=== PATIENT | male | born 1960 | race Caucasian/White ===

== ENCOUNTER 2017-10-14 07:39 | Emergency (ER) | payer OTHER, SELFPAY ==
[2017-10-14 07:39] VITALS: BP 143/89; PULSE 70; RESP 18; TEMP 37.2; O2SAT 97; BMI 29.1
--- NOTE | 2017-10-14 07:51 | CT_ITS ---
STUDY: CT ABDOMEN AND PELVIS WITHOUT CONTRAST REASON FOR EXAM: Male, 56 years old. RIGHT FLANK PAIN, HEMATURIA, HX [place]. RADIATION DOSAGE (If Supplied By Facility): CTDIvol = ( 12.85 ) mGy, DLP = ( 693.71 ) mGycm TECHNIQUE: Transaxial images were obtained from the dome of the diaphragm to the symphysis pubis without oral contrast, and without intravenous contrast. Sagittal and coronal images were reconstructed. Individualized dose optimization techniques were used for this CT. COMPARISON: None. FINDINGS: The visualized lung bases are unremarkable. The visualized portions of the heart are within normal limits. Normal liver. Normal gallbladder and extrahepatic biliary system. Normal spleen. Normal pancreas. Normal bilateral adrenal glands. There is mild hydroureteronephrosis on the right. There is a 5 mm calculus at the proximal ureter (axial image #116 series 2). Additionally there are multiple small up to 2 mm calculi of the bilateral kidneys. Normal visualized stomach. Normal small intestine. There are multiple colonic diverticula consistent with diverticulosis. The appendix is visualized and appears normal. There is diffuse atherosclerotic calcification of the abdominal aorta, without a demonstrated aneurysm. Normal inferior vena cava. Normal retroperitoneum. Normal urinary bladder. Normal abdominal wall. There are diffuse degenerative changes of the visualized lumbar spine. CT/Abdomen/Pelvis without Cont IMPRESSION: 5 mm proximal ureteral calculus with mild hydroureteronephrosis on the left. Small bilateral renal calculi. Diverticulosis Electronically Signed: Natasha Fry MD at 9:04 EDT Tel , Service support ,
--- NOTE | 2017-10-14 07:52 | ED.VISSUMM ---
- ER Visit Summary Date of Service: 10/14/17 Chief Complaint: Acute right flank pain that awoke patient from sleep History of Present Illness: The patient is a 56 M with history of prior renal calculi. He has never had a CAT scan. Last imaging was years ago and he had an intravenous pyelogram performed. He reports hematuria last week. He has had no hematuria this week. He presently denies nausea or vomiting. He denies fever or chills. He denies cough, shortness of breath or difficulty breathing. He denies chest pain, palpitations or orthopnea. He does report pain radiating anteriorly and earlier this morning radiating into his right testicle. He denies dysuria, frequency, urgency or hematuria. He reports difficulty urinating and decreased urine output. There is no history of trauma. He is on no medication and has no allergies. He lives with his spouse. He does drink but does not smoke. Physical Examination: Patient appears uncomfortable. He declined pain medicine. HEENT is unremarkable. Heart is regular without murmur, gallop or rub. S1 and S2 are normal. Lungs are clear to auscultation with good movement of air bilaterally. Abdomen is soft nontender with increased bowel sounds. There is no temporal percussion. There is no CVA tenderness noted. There is no inguinal lymphadenopathy or hernia. There is no dermatologic lesions noted. Test Results: BMP is unremarkable. UA is remarkable for microscopic hematuria. CT of the abdomen pelvis without contrast reveals multiple bilateral renal calculi. There is a 5 mm mid to proximal right ureteral calculus with hydronephrosis. Emergency Department Course and Treatment: Patient declined pain medicine. He states the pain is not as bad. Since he is middle-age will obtain a BMP, UA and CT abdomen pelvis without contrast to evaluate for obstructing renal stone. Treatment Plan: Referral to urology and opiate analgesia for pain control Disposition: Discharged to home with spouse Impression: 1. 5 mm proximal/mid right ureteral calculus with mild hydronephrosis 2. Multiple small bilateral renal calculi This note was generated with [employer] dictation software. It may contain incorrect words, spelling, and punctuation that were not noted in review of the chart prior to signing ED Disposition - Plan for ED Patient: Disposition: Home or Assisted Living Chief Complaint: Flank Pain Instructions: ED Stone Renal W Colic Prescriptions: Oxycodone HCl/Acetaminophen [Percocet 5/325] 1 tab PO Q6H PRN PRN 5 Days #20 tab PRN Reason: flank pain Referrals: Raheel Jones III, MD [Primary Care Provider] - Sandra Cruz MD [STAFF PHYSICIAN] - 5-7 Days
[2017-10-14 08:26] LABS: Anion Gap 5 (5-15); BUN 12 mg/dL (7-18); BUN/Creat Ratio 12.1 RATIO (10-20); Calcium,Total 8.3 mg/dL (8.5-10.1); Chloride 110 mmol/L (98-107); Creatinine, Serum 0.99 mg/dL (0.70-1.30); EST Glomerular Filtration Rate 83 mL/min (>60); Est Glom Filt Rate - Afr Amer 101 mL/min (>60); Estimated Creatinine Clearance 87.05 ml/min; Glucose 104 mg/dL (74-106); Potassium 3.8 mmol/L (3.5-5.1); Sodium Level 142 mmol/L (136-145)
[2017-10-14 08:28] LABS: Bacteria 0 SEEN /hpf (None Seen); Mucous, Urine 0 SEEN /hpf (<or=2+); Squamous Epithelial Cells - UA 0 SEEN /hpf (0-5); White Blood Cells 0 SEEN /hpf (0-5)
[2017-10-14 08:30] LABS: Color, Urine Yellow (Yellow); Glucose, Dipstick Normal (Normal); Ketone-Dipstick Negative (Negative); Leukocyte Esterase-Dipstick Negative /ul (Negative); Nitrite-Dipstick Negative (Negative); Occult Blood-Urine 250 /ul (Negative); Protein-Dipstick Negative (Negative); Specific Gravity, Urine 1.015 (1.002-1.030); Urine Bilirubin Dipstick Negative (Negative); Urine Clarity Sl. Cloudy (Clear); Urine Urobilinogen Normal (Normal); Urine pH 6.5 (5.0 - 8.0)
[2017-10-14 08:36] LABS: Red Blood Cells-Urine 25-50 SEEN /hpf (0-5)
[2017-10-14 10:00] VITALS: BP 131/77; PULSE 59; RESP 15; O2SAT 99
== END 2017-10-14 10:01 | disposition home or self-care (01) ==
PROVIDERS: Emergency Provider Emergency Medicine; Family Provider Family Medicine; PCP Family Medicine
DX: N13.2 Hydronephrosis with renal and ureteral calculous obstruction (principal); R31.29 Other microscopic hematuria; E66.9 Obesity, unspecified; Z87.442 Personal history of urinary calculi
CPT/HCPCS: 74176; 80048; 81001; 99285; A4216

== ENCOUNTER 2017-12-09 15:14 | Emergency (ER) | payer OTHER, SELFPAY ==
[2017-12-09 15:15] VITALS: BP 160/99; PULSE 66; RESP 18; TEMP 36.4; O2SAT 98; BMI 28.7
--- NOTE | 2017-12-09 15:32 | CT_ITS ---
STUDY: CT ABDOMEN AND PELVIS WITHOUT CONTRAST REASON FOR EXAM: Male, 57 years old. Right flank pain RADIATION DOSAGE (If Supplied By Facility): CTDIvol = ( 13.71 ) mGy, DLP = ( 774.31 ) mGycm TECHNIQUE: Transaxial images were obtained from the dome of the diaphragm to the symphysis pubis without oral contrast, and without intravenous contrast. Sagittal and coronal images were reconstructed. Individualized dose optimization techniques were used for this CT. COMPARISON: 10/14/2017 FINDINGS: Evaluation of the abdominal viscera is limited in the absence of intravenous contrast. The visualized lung bases are clear. The visualized portions of the heart and pericardium are within normal limits. There are no calcified gallstones present. The liver demonstrates an unremarkable unenhanced appearance. The spleen is normal in size. The pancreas demonstrates an unremarkable unenhanced appearance. The adrenal glands are within normal limits. There is a 5 mm stone in the right distal ureter with mild right hydroureteronephrosis. There are additional subcentimeter bilateral nonobstructing collecting system stones. There is no left ureteral stone. There is no left hydronephrosis. Normal visualized stomach. There is no bowel obstruction or inflammation. The appendix is visualized and appears normal. The aorta is normal in caliber. There is no abdominal or pelvic free air, free fluid, fluid collection or lymphadenopathy. There are no destructive osseous lesions. CT/Abdomen/Pelvis without Cont IMPRESSION: 5 mm stone in the right distal ureter with mild right hydroureteronephrosis. Bilateral subcentimeter nonobstructing renal collecting system stones. No left ureteral stones. No left hydronephrosis. Electronically Signed: Greyson Urbina, at 16:12 EDT Tel , Service support ,
--- NOTE | 2017-12-09 15:38 | ED.VISSUMM ---
- ER Visit Summary Date of Service: 12/09/17 Chief Complaint: Flank pain History of Present Illness: The patient is a 57 M with right sided flank pain. He has had this for months. This episode started this morning. He was recently diagnosed with kidney stones. He took his oxycodone at home which did not help. He also reports hematuria. No fevers, chills, or sweats. No other symptoms. Physical Examination: Afebrile and vital signs unremarkable. Patient is pacing and appears uncomfortable. Heart regular. Lungs clear. Abdomen soft. Right CVA tenderness palpation. Skin appears normal. Test Results: Labs, urine, CT pending. Emergency Department Course and Treatment: Patient treated with fluids, Toradol, Zofran while awaiting results. CT showed a 5 mm stone in the right distal ureter with mild hydroureteronephrosis. CBC normal. BMP unremarkable. Urinalysis shows elevated leuks, blood, and nitrites. Culture is pending. Treatment Plan: Patient treated with Toradol and Zofran here. He also received IV fluids. He was feeling better on reevaluation. Requesting discharge. Will treat with a course of Flomax, Percocet, Zofran, and Keflex. He was referred to urology for outpatient follow-up. Disposition: Discharged Impression: 1. Ureteral colic 2. UTI This note was generated with [employer] dictation software. It may contain incorrect words, spelling, and punctuation that were not noted in review of the chart prior to signing ED Disposition - Plan for ED Patient: Chief Complaint: Flank Pain Referrals: Raheel Jones III, MD [Primary Care Provider] -
[2017-12-09] MEDS: 0.9% Normal Saline 1,000 ML 1000 ML IV (15:53)
[2017-12-09] MEDS: Ketorolac 30 MG/ML Syringe IV (15:54)
[2017-12-09] MEDS: Ondansetron 4 MG/2 ML Vial IV (15:54)
[2017-12-09 16:03] LABS: Squamous Epithelial Cells - UA 0 SEEN /hpf (0-5)
[2017-12-09 16:06] LABS: Color, Urine Yellow (Yellow); Glucose, Dipstick Normal (Normal); Ketone-Dipstick 5 mg/dl (Negative); Leukocyte Esterase-Dipstick 25 /ul (Negative); Nitrite-Dipstick Positive (Negative); Occult Blood-Urine 250 /ul (Negative); Protein-Dipstick 100 mg/dl (Negative); Specific Gravity, Urine 1.025 (1.002-1.030); Urine Bilirubin Dipstick Negative (Negative); Urine Clarity Cloudy (Clear); Urine Urobilinogen 1 mg/dl (Normal)
[2017-12-09 16:12] LABS: Absolute Neutrophil Count 8.5 X10^3/uL (2.0-7.7); Basophil# 0.01 X10^3/uL; Basophil% 0.1 % (0-1); Eosinophil# 0.06 X10^3/uL; Eosinophils% 0.6 % (0-5); Hemoglobin 15.3 g/dl (13.0-16.5); Mean Corp Hgb Conc 32.6 g/gl (32-36); Mean Corpuscular Hgb 29.9 pg (27.0-32.0); Mean Platelet Vol. 10.6 fl (6.2-12.0); Monocyte# 0.61 X10^3/uL; Monocyte% 6.1 % (0-10); Neutrophil # 8.45 X10^3/uL (2.7-7.7); Neutrophil % 85.1 % (47-70); Platelet Count 193 K/mm3 (150-450); RBC Distribution Width CV 12.6 % (11.6-14.6); RBC Distribution Width SD 42.4 fl (35.1-43.9); Red Blood Count 5.11 M/mm3 (4.6-6.2); White Blood Count 9.9 K/mm3 (4.4-11.0)
[2017-12-09 16:14] LABS: POSITIVE COUNT NO; POSITIVE DIFFERENTIAL NO; POSITIVE MORPHOLOGY NO
[2017-12-09 16:19] LABS: Anion Gap 7 (5-15); BUN 15 mg/dL (7-18); BUN/Creat Ratio 12.2 RATIO (10-20); Calcium,Total 8.9 mg/dL (8.5-10.1); Chloride 109 mmol/L (98-107); Creatinine, Serum 1.23 mg/dL (0.70-1.30); EST Glomerular Filtration Rate 65 mL/min (>60); Est Glom Filt Rate - Afr Amer 78 mL/min (>60); Estimated Creatinine Clearance 69.24 ml/min; Glucose 143 mg/dL (74-106); Potassium 4.3 mmol/L (3.5-5.1); Sodium Level 142 mmol/L (136-145)
[2017-12-09 17:05] LABS: Red Blood Cells-Urine > 100 SEEN /hpf (0-5); White Blood Cells 0-5 SEEN /hpf (0-5)
[2017-12-09 17:06] LABS: Bacteria 2+ /hpf (None Seen); Calcium Oxalate Crystals Ur 1+ /hpf (<or=2+); Mucous, Urine 2+ /hpf (<or=2+)
--- NOTE | 2017-12-09 17:22 | ED.DEP ---
ED Disposition - Plan for ED Patient: Chief Complaint: Flank Pain Instructions: ED Stone Renal W Colic Prescriptions: Oxycodone HCl/Acetaminophen [Percocet 5/325] 1 tab PO Q6H PRN PRN 3 Days #12 tab PRN Reason: Pain Ondansetron [Zofran Odt] 4 mg PO Q8H PRN PRN #10 tab PRN Reason: Nausea Tamsulosin HCl [Flomax] 0.4 mg PO DAILY #10 cap Cephalexin [Keflex] 500 mg PO 4X/DAY #28 cap Referrals: Sandra Cruz MD [STAFF PHYSICIAN] -
[2017-12-09] MEDS: Morphine 4 MG/ML Syringe IV (17:50)
[2017-12-09 18:06] VITALS: BP 141/88; PULSE 70; RESP 16
== END 2017-12-09 18:08 | disposition home or self-care (01) ==
PROVIDERS: Emergency Provider Emergency Medicine; Family Provider Family Medicine; PCP Family Medicine
DX: N23 Unspecified renal colic (principal); N39.0 Urinary tract infection, site not specified; R31.9 Hematuria, unspecified; Z79.899 Other long term (current) drug therapy
CPT/HCPCS: 74176; 80048; 81001; 85025; 87086; 87088; 96374; 96375; 99283; J7030; J2405

== ENCOUNTER 2019-04-01 20:50 | Emergency (ER) | payer OTHER, SELFPAY ==
[2019-04-01 20:52] VITALS: BP 171/106; PULSE 121; RESP 17; TEMP 36; O2SAT 96; BMI 33.6
--- NOTE | 2019-04-01 20:56 | ED.RN ---
this rn called for ekg from triage.
[2019-04-01 21:15] VITALS: O2SAT 94
[2019-04-01 21:54] VITALS: BP 135/92; PULSE 97; RESP 19; O2SAT 97
--- NOTE | 2019-04-01 22:13 | EKG12_ITS ---
Test Reason : DYSRHYTHMIA Blood Pressure : / mmHG Vent. Rate : 107 BPM Atrial Rate : 107 BPM P-R Int : 120 ms QRS Dur : 074 ms QT Int : 328 ms P-R-T Axes : 030 008 025 degrees QTc Int : 437 ms Sinus tachycardia Possible Inferior infarct , age undetermined Abnormal ECG Confirmed by RONNY TONEY, IMANI ([id number]), editor producer JAYESH MENDEZ ([id number]) on 04/02/2019 10:39:34 AM Referred By: BB Confirmed By:ENIO JEFFERSON MD
--- NOTE | 2019-04-01 22:17 | ED.DCSUM_ITS ---
History of Present Illness Chief Complaint: Shortness of Breath Informant: Patient Onset: Today Timing: Intermittent, Lasts - 2-3 Quality: - - couldn't catch breath Current Severity: Gone Maximum Severity: Severe Worsened by: Nothing Relieved by: Nothing Associated Symptoms: - - racing HB. Negative for: Cough, Ear pain, Fever Chest Pain: None Narrative: Patient takes medicine for blood pressure. He has been having episodes of dyspnea off and on for 10 years. More frequent in the last year or so, saw his doctor and had a chest x-ray that was unremarkable and advised to come to the ER if it returned, which it did tonight while resting, suddenly. No history of DVT or PE. No recent leg pain or swelling, recent travel, hospitalization, or surgery. No leg injury. Denies having any chest pain with it. No near syncope or syncope. Did not do any drugs. No history of any heart problems that he knows of. No exertional symptoms. Other than feeling tired, he feels pretty much back to normal now. He used to smoke 15 years ago but not now. - Past Medical History (1) Hypertension Status: Chronic Past Medical History - Allergies and Home Meds Allergies/Adverse Reactions: Allergies No Known Allergies Allergy (Verified 04/01/19 20:51) Primary Care Physician: Raheel Jones III, MD [Primary Care Provider] - Lives: Spouse/ Significant Other Smoking Status: Former smoker Review of Systems General: Denies: Chills, Fever, Sweats Eyes: Denies: Visual changes - bilaterally, Diplopia ENT: Denies: Rhinorrhea, Sore throat Cardiovascular: Reports: Palpitations, Heart racing. Denies: Chest pain Respiratory: Reports: Dyspnea. Denies: Cough, Dyspnea on exertion Gastrointestinal: Denies: Abdominal pain, Nausea, Vomiting, Diarrhea, Melena, Hematochezia Genitourinary: Denies: Dysuria, Hematuria, Frequency Musculoskeletal: Denies: Back pain, Extremity Pain Skin: Denies: Rash, Wounds Neurological: Denies: Headache, Weakness, Numbness Physical Exam Vital Signs/Narrative: Vital Signs Temp Pulse Resp BP Pulse Ox 04/01/19 21:54 97 19 H 135/92 H 97 04/01/19 20:52 96.8 F L 121 H 17 171/106 H 96 Inital Vital Signs reviewed: Yes General: Well nourished, Well developed, No Acute Distress Head: Normocephalic, Atraumatic Eyes: Perrl, EOMI ENT: Moist mucous membranes, No rhinorrhea Neck: Supple, Nontender, No lymphadenopathy, No JVD Cardiovascular: Regular rate, Regular rhythm, No murmurs, Normal S1, Normal S2, Tachycardia - Mild around 105 on exam Respiratory: No distress, CTA bilaterally, Chest nontender Abdomen: Soft, Nontender, Nondistended, Normal bowel sounds Back: Nontender, Normal Inspection Extremities: Nontender, No edema. Negative for: Calf Tenderness Skin: Normal color, No rash, No Trauma Neurological: Alert, Oriented x3, Cranial nerves II-XII grossly intact, Normal Strength, Normal Sensation, Normal Gait Psychological: Normal affect, Normal Mood Diagnostic/Tx/Re-eval Impressions Chest X-Ray 04/01/19 22:29 IMPRESSION: No acute cardiopulmonary disease. Electronically Signed: Aneesh Alfaro DO at 22:41 EST Tel [phone], Service support , 04/01/19 22:29 Chest PA and Lateral [RAD] Stat Laboratory Results 04/01/19 04/01/19 04/01/19 21:39 21:39 21:39 WBC 7.6 RBC 5.18 Hgb 15.5 Hct 46.3 MCV 89.4 MCH 29.9 MCHC 33.5 RDW Std Deviation 40.5 RDW Coeff of Matt 12.3 Plt Count 225 MPV 10.7 Immature Gran % (Auto) 0.300 Neut % (Auto) 67.3 Lymph % (Auto) 22.0 Simpson % (Auto) 7.1 Eos % (Auto) 2.8 Baso % (Auto) 0.5 Absolute Neuts (auto) 5.1 Absolute Lymphs (auto) 1.66 Nucleated RBC % 0 D-Dimer Quant (PE/DVT) 0.29 Sodium 140 Potassium 3.7 Chloride 109 H Carbon Dioxide 25.0 Anion Gap 6 BUN 17 Creatinine 0.94 Estim Creat Clear Calc 89.52 Est GFR (MDRD) Af Amer 106 Est GFR (MDRD) Non-Af 88 BUN/Creatinine Ratio 18.1 Glucose 133 H Calcium 8.7 Troponin I < 0.015 - Rhythm Strip Rhythm Strip: Sinus Rhythm Rate: 95 Ectopy: None - EKG Initial EKG Interpretation: No Acute Injury Pattern - Normal other than mild tachycardia and Q waves in lead III only, Sinus Tachycardia With Ambulation: Asymptomatic - Medical Decision Making Patient was monitored had no recurrent symptoms, telemetry events, his labs including d-dimer and his chest x-ray are all normal, and his EKG is normal. He states he is about to be scheduled for an outpatient stress test because of the symptoms, I think he can be safely discharged and continued to get that as an outpatient, does not require admission at this time given the chronicity and recurrent symptoms. After stress test, or even before, I think a Holter/event monitor would be indicated to rule out dysrhythmia, ectopy, or other cardiac etiology of the symptoms. Discussed at length with patient they are comfortable with this plan will follow-up with PCP. ED Disposition - Plan for ED Patient: Disposition: Home or Assisted Living Diagnosis: Acute dyspnea, Palpitations Instructions: Palpitations Referrals: Raheel Jones III, MD [Primary Care Provider] - As soon as possible
--- NOTE | 2019-04-01 22:29 | RAD_ITS ---
STUDY: X-RAY CHEST REASON FOR EXAM: Male, 58 years old. Shortness of breath. TECHNIQUE: PA and lateral views of the chest. COMPARISON: None. FINDINGS: The lungs are clear and expanded. There is no demonstrated pleural abnormality. Normal size heart. Normal mediastinum and susan. Normal visualized pulmonary arteries. Normal visualized aortic arch and descending thoracic aorta. Normal visualized thoracic spine. Normal visualized ribs, clavicles, and shoulders. There is no demonstrated abnormality of the visualized soft tissue structures of the upper abdomen. RAD/Chest PA and Lateral IMPRESSION: No acute cardiopulmonary disease. Electronically Signed: Aneesh Alfaro DO at 22:41 EST Tel [phone], Service support ,
[2019-04-01 22:32] LABS: Absolute Lymphocyte Count 1.66 X10^3/uL (0.83-4.51); Absolute Neutrophil Count 5.1 X10^3/uL (2.0-7.7); Basophil# 0.04 X10^3/uL; Basophil% 0.5 % (0-1); Eosinophil# 0.21 X10^3/uL; Eosinophils% 2.8 % (0-5); Hematocrit 46.3 % (40-54); Hemoglobin 15.5 g/dL (13.0-16.5); Lymphocyte # 1.66 X10^3/ul (4.0); Mean Corp Hgb Conc 33.5 g/dL (32-36); Mean Corpuscular Hgb 29.9 pg (27.0-32.0); Mean Corpuscular Volume 89.4 fL (80-94); Mean Platelet Vol. 10.7 fl (6.2-12.0); Monocyte# 0.54 X10^3/uL; Monocyte% 7.1 % (0-10); NRBC Flagged by Analyzer 0 % (0-5); Neutrophil # 5.09 X10^3/uL (2.7-7.7); Neutrophil % 67.3 % (47-70); Platelet Count 225 K/mm3 (150-450); RBC Distribution Width CV 12.3 % (11.6-14.6); RBC Distribution Width SD 40.5 fl (35.1-43.9); Red Blood Count 5.18 M/mm3 (4.6-6.2); White Blood Count 7.6 K/mm3 (4.4-11.0)
[2019-04-01 22:50] LABS: Anion Gap 6 (5-15); BUN 17 mg/dL (7-18); BUN/Creat Ratio 18.1 RATIO (10-20); Calcium,Total 8.7 mg/dL (8.5-10.1); Chloride 109 mmol/L (98-107); Creatinine, Serum 0.94 mg/dL (0.70-1.30); EST Glomerular Filtration Rate 88 mL/min (>60); Est Glom Filt Rate - Afr Amer 106 mL/min (>60); Estimated Creatinine Clearance 89.52 ml/min; Glucose 133 mg/dL (74-106); Potassium 3.7 mmol/L (3.5-5.1); Sodium Level 140 mmol/L (136-145)
[2019-04-01 22:52] LABS: D-Dimer Quantitative (DVT/PE) 0.29 FEU/ug/m (0.27-0.49)
[2019-04-01 23:14] VITALS: BP 123/89; PULSE 79; RESP 20; O2SAT 93
[2019-04-01 23:45] VITALS: BP 129/95; PULSE 74; RESP 20; O2SAT 96
== END 2019-04-01 23:45 | disposition home or self-care (01) ==
PROVIDERS: Emergency Provider Emergency Medicine; Family Provider Family Medicine; PCP Family Medicine
DX: R06.00 Dyspnea, unspecified (principal); R00.2 Palpitations; I10 Essential (primary) hypertension; Z79.899 Other long term (current) drug therapy; Z87.891 Personal history of nicotine dependence
CPT/HCPCS: 71046; 80048; 84484; 85025; 85379; 93005; 99284; A4216

== ENCOUNTER 2021-04-09 04:06 | Emergency (ER) | payer OTHER, SELFPAY ==
[2021-04-09 04:07] VITALS: BP 147/98; PULSE 78; RESP 16; TEMP 36; O2SAT 98; BMI 30.4
--- NOTE | 2021-04-09 04:36 | CT_ITS ---
STUDY: CT ABDOMEN AND PELVIS WITH CONTRAST REASON FOR EXAM: Male, 60 years old. left sided abd pain RADIATION DOSAGE (If Supplied By Facility): CTDIvol = ( 18.00 ) mGy, DLP = ( 1254.55 ) mGycm TECHNIQUE: Transaxial images were obtained from the dome of the diaphragm to the symphysis pubis without oral contrast. IV 100mL Isovue-[id number] was administered. Sagittal and coronal images were reconstructed. Individualized dose optimization techniques were used for this CT. COMPARISON: Ct abdomen from 12/09/2017. FINDINGS: The visualized lung bases are unremarkable. The visualized portions of the heart are within normal limits. Normal liver. Normal gallbladder and extrahepatic biliary system. Normal spleen. Normal pancreas. Normal bilateral adrenal glands. Normal right kidney. Normal left kidney. There are bilateral subcentimeter nonobstructive renal calculi. No ureteral calculus or hydronephrosis. Normal visualized stomach. Normal small intestine. There are a few scattered colonic diverticula consistent with diverticulosis. The appendix is visualized and appears normal. Normal abdominal aorta. Normal inferior vena cava. Normal retroperitoneum. Normal urinary bladder. Normal abdominal wall. There are degenerative changes of the visualized lumbar spine. CT/Abdomen/Pelvis W IV Cont ONLY IMPRESSION: Negative enhanced CT of the abdomen and pelvis for acute abnormality. No ureteral calculus. Electronically Signed: Arsen Castañeda MD at 6:13 EST Tel , Service support ,
--- NOTE | 2021-04-09 04:37 | EKG12_ITS ---
Test Reason : ABD PAIN Blood Pressure : / mmHG Vent. Rate : 068 BPM Atrial Rate : 068 BPM P-R Int : 108 ms QRS Dur : 074 ms QT Int : 378 ms P-R-T Axes : 042 002 008 degrees QTc Int : 401 ms Sinus rhythm with short NH Otherwise normal ECG Confirmed by ANGLE TONEY, DERIAN ([id number]), visual effects editor NAEEM MAYERS ([id number]) on 04/12/2021 9:50:44 AM Referred By: JIGAR Confirmed By:DERIAN BARBOUR MD
--- NOTE | 2021-04-09 04:37 | ED.VIS.GI ---
HPI HPI - GI History of Present Illness Chief Complaint: Abd Pain Informant: patient Narrative Narrative: Patient is a 60-year-old male with history of hypertension and kidney stones presenting with left-sided discomfort and constipation. Patient states he is normally very regular and has at least 2 bowel movements a day. He states his last bowel movement was yesterday morning and was small. He notes that he has developed pain in his left abdomen/flank that he describes as mild. He has a hard time characterizing it. It does not radiate. He notes he just been feeling poorly for the past 2 days. 1 week ago he was having testicular pain and that he was may be passing a small kidney stone. He has been trying an enema as well as MiraLAX with no relief of his constipation or discomfort. Denies any fever or chills. Denies any nausea or vomiting. Denies any chest pain or other symptoms. Notes that about 3 weeks ago he had flulike/cold-like symptoms and figured he likely had COVID however he was not tested. Denies any urinary symptoms at this time. No other complaints. [facility] Medical History Arthritis Hay fever Home Medications bisoprolol-hydrochlorothiazide 1 tab PO DAILY 04/09/21 [History Last Taken Unknown] Allergy/AdvReac Type Severity Reaction Status Date / Time No Known Allergies Allergy Verified 04/01/19 20:51 Social History Smoking Status: Former smoker alcohol intake: current alcohol intake frequency: 0-2 drinks per day Alcohol type: beer ROS ROS ED Constitutional Constitutional ED: Denies fever(s) or subjective ENT ENT ED: Denies rhinorrhea or sore throat Cardiovascular Cardiovascular: Denies chest pain or palpitations Respiratory/Chest Respiratory/Chest: Denies dyspnea Gastrointestinal Gastrointestinal: Reports abdominal pain and constipation; Denies diarrhea, nausea or vomiting Genitourinary Genitourinary ED: Denies dysuria, hematuria or urinary frequency Musculoskeletal Musculoskeletal: Reports back pain; Denies arthralgias or myalgias Integumentary Denies rash Neurologic Neurologic: Denies headache(s) or weakness Psychiatric Psychiatric: Denies depression EXAM Physical Exam Const Vital Signs: 04/09/21 04:07 Temperature 96.8 F L Temperature Source Oral Pulse Rate 78 Respiratory Rate 16 Blood Pressure 147/98 H Blood Pressure Mean 114 Pulse Ox 98 Oxygen Delivery Method Room Air Positive well nourished and well developed General Appearance ED: well developed HEENT Reports moist mucous membranes normocephalic Eyes PERRL and EOMs intact bilaterally Neck supple Resp normal respiratory effort and clear to auscultation bilaterally Cardio regular rate, regular rhythm and no murmurs GI non-tender and non-distended Auscultation: hyperactive bowel sounds Palpation: soft; Negative for guarding or rigid Back/Spine no CVA tenderness Back/Spine Narrative: No midline tenderness. Mild left lumbar paraspinal tenderness around L2/L3 Extremity full ROM General Extremety ED: Negative for edema General Extremity: Negative for edema Neuro moves all extremities Sensorium / Orientation: alert, oriented to person, oriented to place and oriented to time Psych mental status grossly normal and thought process normal Skin Lesions: no lesions Rashes: no rashes MDM MDM MDM Narrative Medical decision making narrative: Patient evaluated for sensation constipation, left flank/low back pain and generalized malaise. Patient appears nontoxic in no acute distress. Vital signs are significant for very mild hypertension but they are stable. He is not having associated chest pain or shortness of breath. He does have a history of hypertension so cardiac work-up is ordered as well including high-sensitivity troponin and EKG. [place] normal. There is no obvious acute intra-abdominal cause of his discomfort. CT was obtained to rule out diverticulitis and small bowel obstruction which showed diverticulosis and nephrolithiasis with no signs of hydronephrosis or ureterolithiasis. Patient is given a liter of IV fluid in the ER. Discussed with patient that I am not sure what is causing his discomfort however I do think he safe for outpatient follow-up. He is given referral back to his surgeon who normally does his colonoscopies as well as GI forest and conservation worker. Patient is counseled return precautions. He is encouraged to drink plenty of fluids and continue taking daily MiraLAX to see if this helps with the symptoms. Lab Data Attestation: I reviewed the patient's lab results. Labs: Laboratory Results - last 24 hr 04/09/21 04/09/21 04/09/21 04:54 04:54 05:30 WBC 5.8 RBC 4.99 Hgb 15.0 Hct 45.5 MCV 91.2 MCH 30.1 MCHC 33.0 RDW Std Deviation 41.0 RDW Coeff of Matt 12.4 Plt Count 224 MPV 10.6 Immature Gran % (Auto) 0.300 Neut % (Auto) 63.7 Lymph % (Auto) 25.5 Garvin % (Auto) 7.6 Eos % (Auto) 2.2 Baso % (Auto) 0.7 Absolute Neuts (auto) 3.7 Absolute Lymphs (auto) 1.48 Nucleated RBC % 0 Sodium 141 Potassium 4.0 Chloride 108 H Carbon Dioxide 27.0 Anion Gap 6 BUN 13 Creatinine 0.99 Estim Creat Clear Calc 82.95 Est GFR (MDRD) Af Amer 100 Est GFR (MDRD) Non-Af 82 BUN/Creatinine Ratio 13.2 Glucose 125 H Calcium 8.4 L Total Bilirubin 0.90 AST 19 ALT 33 Alkaline Phosphatase 84 Troponin I High Sens 6 Total Protein 6.8 Albumin 3.7 Globulin 3.1 Albumin/Globulin Ratio 1.2 Urine Color Yellow Urine Clarity Clear Urine pH 6.5 Ur Specific [place] 1.010 Urine Protein Negative Urine Glucose (UA) Normal Urine Ketones Negative Urine Occult Blood Negative Urine Nitrite Negative Urine Bilirubin Negative Urine Urobilinogen Normal Ur Leukocyte Esterase Negative Urine RBC 0 SEEN Urine WBC 0 SEEN Ur Squamous Epith Cells 0 SEEN Urine Bacteria 0 SEEN Urine Mucus 0 SEEN Radiography Diagnostic Testing: Clinical Impression(s) from Imaging Studies Abdomen/Pelvis CT 04/09/21 04:36 IMPRESSION: Negative enhanced CT of the abdomen and pelvis for acute abnormality. No ureteral calculus. Electronically Signed: Arsen Castañeda MD at 6:13 EST Tel , Service support , Rhythm Strip Rhythm Strip: Sinus Rhythm Rate: 68 Ectopy: None EKG Initial EKG: Attestation: I personally reviewed and interpreted this EKG as follows: Interpretation: Sinus Rhythm Comments: Sinus rhythm at a rate of 68 with shortened ND interval ND interval 108 Normal axis QRS [address] segments Discharge Plan Triage Chief Complaint: Abd Pain ED Provider: Susu Cm Dx/Rx/DC Orders Clinical Impression: Acute left flank pain, Malaise Instructions: ED Flank Pain, Uncertain Cause Prescriptions: No Action bisoprolol-hydrochlorothiazide 5-6.25 mg tablet 1 tab PO DAILY RF: 0 Primary Care Provider: Care Physician,No Primary Referrals: Friend,DO Jass [STAFF PHYSICIAN] - Michael Mancia MD [STAFF PHYSICIAN] - Care Physician,No Primary [Primary Care Provider] - Activity Restrictions/Additional Instructions: The exact cause of your symptoms is not clear. At this time I think you are stable for outpatient follow-up. There is no sign of a passing kidney stone at this time. You do have stones in your Kidneys that do not appear to be moving. You can continue to take daily MiraLAX to help regulate your bowel movements. Make sure you are drinking plenty of fluids. Disposition Disposition: Home, Self Care Discharge Date/Time: 04/09/21 06:44
[2021-04-09] MEDS: 0.9% Normal Saline 1,000 ML 1000 ML IV (04:57)
[2021-04-09 05:00] LABS: Absolute Lymphocyte Count 1.48 X10^3/uL (0.83-4.51); Absolute Neutrophil Count 3.7 X10^3/uL (2.0-7.7); Basophil# 0.04 X10^3/uL; Basophil% 0.7 % (0-1); Eosinophil# 0.13 X10^3/uL; Eosinophils% 2.2 % (0-5); Hematocrit 45.5 % (40-54); Lymphocyte # 1.48 X10^3/ul (0.83-4.51); Lymphocyte % 25.5 % (19-41); Mean Corpuscular Hgb 30.1 pg (27.0-32.0); Mean Corpuscular Volume 91.2 fL (80-94); Mean Platelet Vol. 10.6 fl (6.2-12.0); Monocyte# 0.44 X10^3/uL; Monocyte% 7.6 % (0-10); NRBC Flagged by Analyzer 0 % (0-5); Neutrophil % 63.7 % (47-70); Platelet Count 224 K/mm3 (150-450); RBC Distribution Width CV 12.4 % (11.6-14.6); Red Blood Count 4.99 M/mm3 (4.6-6.2); White Blood Count 5.8 K/mm3 (4.4-11.0)
[2021-04-09 05:36] LABS: Bacteria 0 SEEN /hpf (None Seen); Mucous, Urine 0 SEEN /hpf (<or=2+); Red Blood Cells-Urine 0 SEEN /hpf (0-5); Squamous Epithelial Cells - UA 0 SEEN /hpf (0-5); White Blood Cells 0 SEEN /hpf (0-5)
[2021-04-09 05:37] LABS: Color, Urine Yellow (Yellow); Glucose, Dipstick Normal (Normal); Ketone-Dipstick Negative (Negative); Leukocyte Esterase-Dipstick Negative /ul (Negative); Nitrite-Dipstick Negative (Negative); Occult Blood-Urine Negative /ul (Negative); Protein-Dipstick Negative (Negative); Urine Bilirubin Dipstick Negative (Negative); Urine Clarity Clear (Clear); Urine Urobilinogen Normal (Normal); Urine pH 6.5 (5.0 - 8.0)
[2021-04-09 05:39] LABS: ALB/GLOB Ratio 1.2 RATIO (0.9-2.4); AST(SGOT) 19 U/L (15-37); Alanine Aminotransfer ALT/SGPT 33 U/L (16-61); Albumin, Serum 3.7 g/dL (3.2-5.0); Alkaline Phosphatase 84 U/L (45-117); Anion Gap 6 (5-15); BUN 13 mg/dL (7-18); BUN/Creat Ratio 13.2 RATIO (10-20); Calcium,Total 8.4 mg/dL (8.5-10.1); Chloride 108 mmol/L (98-107); Creatinine, Serum 0.99 mg/dL (0.70-1.30); EST Glomerular Filtration Rate 82 mL/min (>60); Est Glom Filt Rate - Afr Amer 100 mL/min (>60); Estimated Creatinine Clearance 82.95 ml/min; Globulin 3.1 g/dL (2.2-4.2); Glucose 125 mg/dL (74-106); Protein, Total 6.8 g/dL (6.4-8.2); Sodium Level 141 mmol/L (136-145); Troponin-I HS 6 pg/mL (3.0-78.0)
[2021-04-09 06:41] VITALS: BP 132/70; PULSE 74; O2SAT 99
== END 2021-04-09 06:44 | disposition home or self-care (01) ==
PROVIDERS: Emergency Provider Emergency Medicine; Visit Provider Emergency Medicine
DX: R10.9 Unspecified abdominal pain (principal); R53.81 Other malaise; Z87.891 Personal history of nicotine dependence; I10 Essential (primary) hypertension; Z87.442 Personal history of urinary calculi; Z79.899 Other long term (current) drug therapy; K59.00 Constipation, unspecified; M54.50 Low back pain, unspecified
CPT/HCPCS: 74177; 80053; 81001; 84484; 85025; 93005; 96360; 99283; J7030; Q9967; A4216